=== PATIENT | male | born 1975 | race Caucasian/White ===

== ENCOUNTER → 2018-08-20 | Outpatient (CLI) | payer BC | LOC: BMCIMAGING 17:15 | PROVIDERS: ATTEND Family Medicine | DX: M79.642 Pain in left hand (principal); W54.0XXA Bitten by dog, initial encounter ==

== ENCOUNTER 2018-08-22 19:45 | Emergency (ER) | payer BC ==
--- NOTE | 2018-08-22 20:12 | EDPHY ---
H & P Stated Complaint: Dog bite 08/20, starting antibiotic 08/20, worsening redness and swelling Time Seen by Provider: 08/22/18 19:55 HPI/ROS: CHIEF COMPLAINT: Dog bite infection HISTORY OF PRESENT ILLNESS: Patient is a 43-year-old man who comes to the emergency department complaining of infected dog bite. He was been by his own dog 3 days ago. He presented to an urgent care and had x-rays done which were negative. His wounds were irrigated and sutured closed. He has a puncture wound to the dorsum of his left hand and to the palm. He now comes to the ER complaining of increased swelling and erythema. He has erythema going up to his wrist. No limitation on range of motion in fingers. Afebrile. Severity: Moderate Modifying factors: None REVIEW OF SYSTEMS: Constitutional: denies: chills, fever, recent illness, recent injury EENTM: denies: blurred vision, double vision, nose congestion Respiratory: denies: cough, shortness of breath Cardiac: denies: chest pain, irregular heart rate, lightheadedness, palpitations Gastrointestinal/Abdominal: denies: abdominal pain, diarrhea, nausea, vomiting, blood streaked stools Genitourinary: denies: dysuria, frequency, hematuria, pain Musculoskeletal: denies: joint pain, muscle pain Skin: See HPI Neurological: denies: headache, numbness, paresthesia, tingling, dizziness, weakness Hematologic/Lymphatic: denies: blood clots, easy bleeding, easy bruising Immunologic/allergic: denies: HIV/AIDS, transplant 10 systems reviewed and negative except as noted EXAM: GENERAL: Well-appearing, well-nourished and in no acute distress. HEAD: Atraumatic, normocephalic. EYES: Pupils equal round and reactive to light, extraocular movements intact, sclera anicteric, conjunctiva are normal. ENT: TMs normal, nares patent, oropharynx clear without exudates. Moist mucous membranes. NECK: Normal range of motion, supple without lymphadenopathy or JVD. LUNGS: Breath sounds clear to auscultation bilaterally and equal. No wheezes rales or rhonchi. HEART: Regular rate and rhythm without murmurs, rubs or gallops. ABDOMEN: Soft, nontender, normoactive bowel sounds. No guarding, no rebound. No masses appreciated. BACK: No CVA tenderness, no spinal tenderness, step-offs or deformities EXTREMITIES: Normal range of motion, no pitting or edema. No clubbing or cyanosis. NEUROLOGICAL: Cranial nerves II through XII grossly intact. Normal speech, normal gait. 5/5 strength, normal movement in all extremities, normal sensation , normal reflexes PSYCH: Normal mood, normal affect. SKIN: Patient has erythema surrounding the 2 puncture wounds on the palm and dorsum aspect of his left hand. Minimal involvement of the fingers. No sausage fingers. Normal range of motion of fingers. No purulence. Source: Patient Exam Limitations: No limitations - Personal History Current Tetanus/Diphtheria Vaccine: Yes Current Tetanus Diphtheria and Acellular Pertussis (TDAP): Yes Tetanus Vaccine Date: 08/20/2018 - Medical/Surgical History Hx Asthma: No Hx Chronic Respiratory Disease: No Hx Diabetes: No Hx Cardiac Disease: No Hx Renal Disease: No Hx Cirrhosis: No Hx Alcoholism: No Hx HIV/AIDS: No Hx Splenectomy or Spleen Trauma: No Other PMH: L foot bunion sx. - Family History Significant Family History: No pertinent family hx - Social History Smoking Status: Never smoked Alcohol Use: Sober Drug Use: None Constitutional: Initial Vital Signs Temperature (C) 36.9 C 08/22/18 19:52 Heart Rate 76 08/22/18 19:52 Respiratory Rate 16 08/22/18 19:52 Blood Pressure 132/87 H 08/22/18 19:52 O2 Sat (%) 98 08/22/18 19:52 O2 Delivery Mode Room Air Allergies/Adverse Reactions: No Known Allergies Allergy (Unverified 08/22/18 19:51) Home Medications: Medication Instructions Recorded Amoxicillin/Potassium Clav 08/22/18 [Amox-Clav 875-125 mg Tablet] Doxycycline Hyclate [Vibramycin] 100 mg PO BID #30 cap 08/22/18 Glucosamine 08/22/18 Multivitamin 08/22/18 Medical Decision Making ED Course/Re-evaluation: We have removed the patient's stitches and dressed his wounds. No obvious purulent drainage. Spoke with Dr. Claire Ivory who suggests adding doxycycline and will follow up with him tomorrow in the clinic. I do not suspect flexor tenosynovitis. I did review the x-rays done 2 days ago and there is no sign of foreign body. Differential Diagnosis: Partial list of the Differential diagnosis considered include but were not limited to; dog bite injury, infection and although unlikely based on the history and physical exam, I also considered tendosynovitis, abscess, sepsis. - Data Points Medications Given: Discontinued Medications Doxycycline Hyclate (Doxycycline Hyclate) 100 mg PO EDNOW ONE PRN Reason: Protocol Stop: 08/22/18 20:16 Last Admin: 08/22/18 20:48 Dose: 100 mg Departure - Departure Disposition: Home, Routine, Self-Care Clinical Impression: Dog bite of left hand with infection Qualifiers: Encounter type: initial encounter Qualified Code(s): S61.452A - Open bite of left hand, initial encounter; L08.9 - Local infection of the skin and subcutaneous tissue, unspecified; L08.9 - Local infection of the skin and subcutaneous tissue, unspecified; W54.0XXA - Bitten by dog, initial encounter; W54.0XXA - Bitten by dog, initial encounter Condition: Good Instructions: Animal Bite (ED) Referrals: Vesna Orona MD [Primary Care Provider] - As per Instructions Claire Ivory MD [Medical Doctor] - 1 day without fail Prescriptions: Doxycycline Hyclate [Vibramycin] 100 mg PO BID #30 cap
[2018-08-22] MEDS ORDERED: DOXYCYCLINE HYCLATE 100 MG CAP/TAB PO ONE (20:15)
[2018-08-22 20:58] VITALS: BP 139/69
== END 2018-08-22 20:56 | disposition home or self-care (01) ==
DX: S61.452D Open bite of left hand, subsequent encounter (principal); L08.9 Local infection of the skin and subcutaneous tissue, unspecified

== ENCOUNTER → 2018-08-23 | Day surgery (SDC) | payer BC ==
[~2018-08-23] MED LIST: ACETAMINOPHEN 500 MG TAB ONE; BACITRACIN 50,000 UNITS/10 ML SYR IRR ONE; BUPIVACAINE/EPI 0.5% 30 ML SDV ONE; LR 1,000 ML IV ONE; MIDAZOLAM 2 MG/2 ML VIAL ONE
--- NOTE | 2018-08-23 18:56 | PDHPUP ---
History & Physical Update H&P update statement: This history and physical update is based on an assessment of the patient which was completed after admission or registration (within 24 hours), but prior to the surgery/procedure. H&P update: H&P reviewed & patient examined, no change in patient's condition since H&P completed
[2018-08-23 20:42] VITALS: BP 135/81
--- NOTE | 2018-08-23 23:27 | GOP ---
[f rep st] OPERATIVE REPORT DATE OF OPERATION: 08/23/2018 SURGEON: Tigre Helms MD ANESTHESIA: General. PREOPERATIVE DIAGNOSIS: 1. Left hand abscess dorsal and palmar deep. 2. Infected dog bite of the left hand. POSTOPERATIVE DIAGNOSIS: 1. Left hand abscess dorsal and palmar deep. 2. Infected dog bite of the left hand. 3. Impending deep palmar space infection, radial PROCEDURE PERFORMED: Incision and drainage of left hand abscess, deep/ complicated along with drainage of deep palmar space, radial FINDINGS: ESTIMATED BLOOD LOSS: Less than 5 cc. INDICATIONS: The patient was bitten by his own dog several days ago when he was breaking up a dog fight. He was initially seen in the ER. The incisions were irrigated and closed with suture. He then began experiencing worsening swelling, redness, and pain. He was seen in the ER yesterday, given more antibiotics. He was then given followup with the ID physician who he saw today. I was called by the ID physician with concern that he has an abscess. I saw the patient in my clinic. He had marked swelling of his entire hand over the palm and the dorsal surface over the metacarpals. He had erythema extending to the mid forearm. Over the palmar surface, there was some purulent material draining from the laceration. The exam was concerning for a deep infection. On my own exam, he had full motion of his fingers without any pain to passive stretch or any pain along the flexor tendon sheath and digits. I felt that I and D was indicated. We discussed risks and benefits. Risks include pain, bleeding, infection, damage to surrounding structures including nerves, weakness, stiffness, chronic pain, wound healing complications, need for further operations. He understood these risks and he wished to proceed. DESCRIPTION OF PROCEDURE: The patient was seen in preoperative holding area. He was given opportunity to ask more questions. All his questions were answered. Consent was signed. Surgical site was marked. He was transferred to the operative suite. Care was taken to pad all bony prominences on the gurney. Time-out was called including surgical and anesthesia teams confirming the surgical site and procedure performed. The left upper extremity was prepped in the usual sterile fashion. Of note, he received an IV antibiotic infusion earlier today and I felt that any additional antibiotics were not warranted. I elevated the left upper extremity to exsanguinate it and the tourniquet was inflated to 250 mmHg. First addressed_ the dorsal side. We extended his laceration, which was a 1 cm transverse laceration, then began dissecting down. I did not find any purulent material, just some cloudy fluid. I visualized the extensor tendons, the extensor tendon of the index finger. The tenosynovium appeared violated. I then continued dissecting down. The fascia over the lumbricals was also violated and the dog's tooth appeared to have gone essentially through the lumbricals in-between his 2nd and 3rd metacarpals. The periosteum over his index finger metacarpal was violated as well. I used a rongeur to debride any nonviable appearing muscle. I then turned my attention to the palmar side. He had a longitudinal puncture about a centimeter in length. This was in the middle of the palm, in the ventral crease. I then extended this distally and proximally and carefully dissected down as I the palmar fascia. This was essentially just distal to the carpal tunnel. I then encountered purulent material and took cultures. Then began dissecting. I visualized the arch, as well as the branch of the median nerve. These were protected at all times. I dissected into the thenar area. I did not find any more pockets of purulent material. I then begin irrigating both copiously with sterile saline several liters. After this was done, both incisions were closed with nylon suture. I placed a William drain into each leaving an opening to drain. A bulky dressing was applied. He tolerated the procedure well. He was taken to PACU in stable condition. POSTOPERATIVE CONDITION: Stable. POSTOPERATIVE PLAN: The patient will follow up with me in 2 days for dressing change and a wound check. /[id number]/MODL MTDD
== END | disposition home or self-care (01) ==
LOC: FSGY 17:28
PROVIDERS: ATTEND Orthopaedic Surgery Hand Surgery
PROC: 0KBD0ZZ Excision of Left Hand Muscle, Open Approach (ICD-10-PCS; principal; 2018-08-23 19:00)
PROC: 0J9K0ZZ Drainage of Left Hand Subcutaneous Tissue and Fascia, Open Approach (ICD-10-PCS; principal; 2018-08-23 19:00)
DX: L03.114 Cellulitis of left upper limb (principal); L02.512 Cutaneous abscess of left hand; S61.452A Open bite of left hand, initial encounter; W54.0XXA Bitten by dog, initial encounter; Y93.K9 Activity, other involving animal care
CPT/HCPCS: J2250